=== PATIENT | female | born 1955 | race Caucasian/White ===

== ENCOUNTER 2018-02-22 08:10 | Day surgery (SDC) | payer BC, OTHER ==
[~2018-02-22 08:10] MED LIST: Buffered Lidocaine 0.9% SYRIN* 5 ML/SYR SYRINGE INTRADERM ONE
[2018-02-22] MEDS ORDERED: ceFAZolin 2 GM in NS PREMIX(*) 2 GM/100 ML BAG IVPB ONE (08:25)
[2018-02-22] MEDS ORDERED: Lidocaine 2% PF * 5 ML VIAL ONE (09:01)
[2018-02-22] MEDS ORDERED: Propofol* 10 MG/ML 20 ML BTL IV PUSH ONE ×3 (09:01→10:34)
[2018-02-22] MEDS ORDERED: ROPIVACAINE 5 MG/ML 30 ML BTL (0.5%) ONE (09:36)
[2018-02-22] MEDS ORDERED: Midazolam* 1 MG/ML 2 ML VIAL (2 MG) ONE (09:47)
[2018-02-22] MEDS ORDERED: Ketorolac INJ* 30 MG/ML 1 ML VIAL IV PRN (10:23)
[2018-02-22] MEDS ORDERED: Acetaminophen TAB* 325 MG PO PRN (10:23)
[2018-02-22] MEDS ORDERED: Naloxone* 0.4 MG/ML 1 ML VIAL IV PRN (10:23)
[2018-02-22] MEDS ORDERED: Ondansetron INJ* 2 MG/ML VIAL IV PRN (10:23)
[2018-02-22] MEDS ORDERED: Propofol* 500 MG/50 ML BTL ONE (10:38)
[2018-02-22 11:22] VITALS: BP 110/74
--- NOTE | 2018-02-23 02:03 | OP ---
DATE OF OPERATION: 02/22/18 - [facility] DATE OF : 57 SURGEON: Chava Russell MD POWER SUPPLY ENGINEER: ARSENIO Romero ANESTHESIOLOGIST: Dr. Flynn. ANESTHESIA: Local MAC. PRE-OP DIAGNOSIS: Left thumb extensor tendon laceration over the middle phalanx. POST-OP DIAGNOSIS: Left thumb extensor tendon laceration over the middle phalanx. OPERATIVE PROCEDURE: Repair of left extensor tendon. INDICATIONS: Kailey lacerated the thumb a couple of weeks ago. I talked to her about her options, she had acquired lag at the IP joint and wanted to see if we can improve that somewhat. She understands the risk that even with surgery, she may still develop an extensor lag at the IP joint and she wants to proceed. She also understands the risk of stiffness and loss of flexion. ESTIMATED BLOOD LOSS: 2 mL. COMPLICATIONS: None. FINDINGS: See above and below. DESCRIPTION OF PROCEDURE: Kailye was seen in the preoperative holding area. The correct site, side, and procedure were identified. We came back to the operating room where the arm was prepped and draped in the usual fashion. A time-out was performed. I had infiltrated the operative area with 0.5% ropivacaine. I then reopened her traumatic wound and extended this distally and a bit proximally so that I could expose the laceration at the extensor tendon. I then used a qagan tayagungin blade to debride back the scar tissue that had formed between the two tendon edges until I could see healthy tendon edges on either side of the laceration. I then used a 3-0 Ethibond to repair the extensor tendon; this was done with a Silfverskiold suture. Then knot on the ulnar side was then buried with one [id number] 4-0 Prolene suture. The IP joint now is set in about 20 degrees of hyperextension, very symmetric to the contralateral side. There was no gaping at the tendon repair when I gently flexed the IP joint. Everything was looking good, so we irrigated out the wound. The skin was closed with 4-0 nylon suture. The wound was dressed with 4x4, 1 inch Ysabel, and then a Clamshell AlumaFoam splint was placed over the entirety of the thumb holding the IP joint in full extension. This was secured with a 1-inch Coban. Tourniquet was deflated. The thumb pinked up immediately and she was taken to the recovery room in stable condition. Tourniquet was used at 250 mmHg throughout the case. [id number]/[facility] #: [id number] BACILIO
== END 2018-02-22 11:44 | disposition home or self-care (01) ==
LOC: OREAST 08:10
PROVIDERS: ATTEND Orthopaedic Surgery Hand Surgery
DX: S66.222A Laceration of extensor muscle, fascia and tendon of left thumb at wrist and hand level, initial encounter (principal); F32.9 Major depressive disorder, single episode, unspecified; F41.9 Anxiety disorder, unspecified; F17.210 Nicotine dependence, cigarettes, uncomplicated; W26.0XXA Contact with knife, initial encounter; W45.8XXA Other foreign body or object entering through skin, initial encounter; W27.8XXA Contact with other nonpowered hand tool, initial encounter; Y93.89 Activity, other specified; Y92.040 Kitchen in boarding-house as the place of occurrence of the external cause
CPT/HCPCS: J0690; J2250; J2704; J2795

== ENCOUNTER 2019-07-15 05:40 | Day surgery (SDC) | payer BC ==
[~2019-07-15 05:40] MED LIST changes: -Buffered Lidocaine 0.9% SYRIN* 5 ML/SYR SYRINGE INTRADERM ONE; +Buffered Lidocaine 1% SYRIN* 1 ML/SYRINGE INTRADERM ONE
[2019-07-15] MEDS ORDERED: Lactated Ringers 1000 ML Bag* 1,000 ML IV SCH (06:00)
[2019-07-15] MEDS ORDERED: Famotidine IV* 10 MG/ML 2 ML (20 mg) IV ONE (06:00)
[2019-07-15] MEDS ORDERED: Famotidine IV* 10 MG/ML 2 ML (20 mg) ONE (06:10)
[2019-07-15] MEDS ORDERED: Betamethasone INJ* 6 MG/ML 5 ML VIAL (30 MG) ONE (07:13)
[2019-07-15] MEDS ORDERED: Lidocaine 1% w EPI 1:200,000* SDV 30 ML VIAL ONE (07:14)
[2019-07-15] MEDS ORDERED: Bupivacaine 0.25% SDV PF* 10 ML VIAL INJ ONE (07:14)
[2019-07-15] MEDS ORDERED: Midazolam* 1 MG/ML 5 ML VIAL (5 MG) ONE (07:32)
[2019-07-15] MEDS ORDERED: Ketorolac INJ* 30 MG/ML 1 ML VIAL ONE (07:45)
[2019-07-15] MEDS ORDERED: Propofol* 10 MG/ML 20 ML BTL ONE (07:45)
[2019-07-15] MEDS ORDERED: Ondansetron INJ* 2 MG/ML VIAL ONE (07:45)
[2019-07-15] MEDS ORDERED: Lidocaine 2% PF * 5 ML VIAL ONE (07:45)
[2019-07-15] MEDS ORDERED: Naloxone* 0.4 MG/ML 1 ML VIAL IV PRN (08:01)
[2019-07-15] MEDS ORDERED: Bupivacaine 0.25% SDV* 30 ML ONE (08:48)
[2019-07-15 09:42] VITALS: BP 113/76
--- NOTE | 2019-07-15 15:11 | OP ---
DATE OF OPERATION: 07/15/19 - [facility] DATE OF : 57 SURGEON: Chava Russell MD HEAD OF OPERATION AND LOGISTICS: ARSENIO Bertrand ANESTHESIOLOGIST: Dr. Ahmadi. ANESTHESIA: Local MAC. PRE-OP DIAGNOSIS: Left trigger thumb. POST-OP DIAGNOSIS: Left trigger thumb. OPERATIVE PROCEDURE: Left trigger thumb release. INDICATIONS: Kailey has the condition. It is quite severe. We talked about treatment options. She decided to proceed with surgery. ESTIMATED BLOOD LOSS: 2 mL. COMPLICATIONS: None. FINDINGS: See above and below. DESCRIPTION OF PROCEDURE: Ms. Lea was seen in the preoperative holding area. The correct site, side, and procedure were identified. We came back to the operating room. I anesthetized the operative area with 0.25% plain Marcaine. The arm was then prepped and draped in the usual fashion and a time- out was performed. I made a 1 cm transverse incision over the A1 eneida in the MCP joint flexion crease. Full-thickness flaps were raised off the tendon sheath. Retractors were placed. The A1 eneida was incised longitudinally. It was very thickened. Once I had completed the release distally and proximally, we irrigated out the wound. Skin was closed with 4-0 nylon suture. Soft dressings were applied and she was taken to the recovery room in stable condition. [id number]/[facility] #: [id number] [facility]
== END 2019-07-15 09:40 | disposition home or self-care (01) ==
LOC: OR 05:40
PROVIDERS: ATTEND Orthopaedic Surgery Hand Surgery
DX: M65.312 Trigger thumb, left thumb (principal); F41.8 Other specified anxiety disorders; F17.210 Nicotine dependence, cigarettes, uncomplicated; Z88.1 Allergy status to other antibiotic agents; E78.1 Pure hyperglyceridemia
CPT/HCPCS: J0702; J1885; J2001; J2250; J2405; J2704; J3490

== ENCOUNTER 2022-08-12 06:44 | Observation (INO) ==
[~2022-08-12 06:44] MED LIST changes: +Buffered Lidocaine 1% SYRIN 1 ml INTRADERM ONE; -Buffered Lidocaine 1% SYRIN* 1 ML/SYRINGE INTRADERM ONE; +HYDROcodone/ACETAMIN 5/325 mg TAB PO PRN; +Lactated Ringers 1000 ml BAG 1,000 ML IV SCH; +Metoclopramide 5 MG/ML VIAL (10 mg) IV PRN; +Naloxone 0.4 mg VIAL 0.4 mg/ml 1 ml VIAL IV PRN; +Ondansetron 4 mg VIAL 2 MG/ML 2 ml VIAL IV PRN
[2022-08-12] MEDS ORDERED: ceFAZolin 2 GM in NS PREMIX 2 GM/100 ML BAG IVPB ONE (07:17)
[2022-08-12] MEDS ORDERED: fentaNYL 100 mcg/2 ml 50 MCG/ML VIAL ONE ×4 (07:44→12:23)
[2022-08-12] MEDS ORDERED: Dexamethasone IV 4 MG/ML VIAL 1 ml VIAL ONE ×2 (07:45→08:01)
[2022-08-12] MEDS ORDERED: ROPIVACAINE 5 MG/ML 30 ML BTL (0.5%) ONE ×2 (07:45→08:05)
[2022-08-12] MEDS ORDERED: Midazolam 2 mg/2 ml VIAL 1 mg/ml 2 ml VIAL (2 mg) ONE ×2 (07:45→07:58)
[2022-08-12] MEDS ORDERED: Propofol 0 MG/0 ML BTL ONE (07:46)
[2022-08-12] MEDS ORDERED: Lidocaine 2% PF 5 ML VIAL ONE (07:46)
[2022-08-12] MEDS ORDERED: Phenylephrine IV 10 MG/ML 1 ml VIAL ONE (07:46)
[2022-08-12] MEDS ORDERED: fentaNYL 250 mcg/5 ml 50 MCG/ML 5 ml VIAL (250 MCG) ONE (07:58)
[2022-08-12] MEDS ORDERED: Propofol 10 MG/ML 20 ML BTL ONE (07:58)
[2022-08-12] MEDS ORDERED: Ondansetron 4 mg VIAL 2 MG/ML 2 ml VIAL ONE (08:01)
[2022-08-12] MEDS ORDERED: HYDROmorphone 0.5 MG/0.5 ML SYRINGE ONE (09:22)
[2022-08-12] MEDS ORDERED: Lactulose 30 ml UDC PO PRN (11:05)
[2022-08-12] MEDS ORDERED: Morphine 2 MG/ML SYRINGE IV PRN (11:05)
[2022-08-12] MEDS ORDERED: Ondansetron ODT 4 mg TAB 4 MG TAB PO PRN (11:05)
[2022-08-12] MEDS ORDERED: Ondansetron 4 mg VIAL 2 MG/ML 2 ml VIAL IV PRN (11:05)
[2022-08-12] MEDS ORDERED: Magnesium Hydroxide LIQ 30 ML UDC PO PRN (11:05)
[2022-08-12] MEDS: fentaNYL 100 mcg/2 ml 50 MCG/ML VIAL IV PRN ×9 (11:14→13:20)
[2022-08-12] MEDS ORDERED: HYDROcodone/ACETAMIN 5/325 mg TAB ONE ×2 (11:21→12:23)
[2022-08-12] MEDS: Lactated Ringers 1000 ml BAG 1,000 ML IV SCH (14:12)
[2022-08-12] MEDS: Nicotine GUM 2MG FRUIT FLAVOR PO PRN ×2 (16:06→19:39)
[2022-08-12] MEDS: ceFAZolin 1 GM ADVAN 1 GM in NS 0.9% 50 ML 50 ML IVPB SCH (17:08)
[2022-08-12] MEDS: Magnesium Hydroxide LIQ 30 ML UDC PO SCH (20:39)
[2022-08-13] MEDS: Lactated Ringers 1000 ml BAG 1,000 ML IV SCH (00:34)
[2022-08-13] MEDS: ceFAZolin 1 GM ADVAN 1 GM in NS 0.9% 50 ML 50 ML IVPB SCH ×2 (00:54→08:56)
[2022-08-13 06:17] LABS: Hematocrit 35 % (35-47); Hemoglobin 11.6 g/dL (12.0-16.0); Mean Platelet Volume 6.5 fL (7.4-10.4); Platelet Count 286 10^3/uL (150-450)
[2022-08-13 06:44] LABS: Calcium 8.2 mg/dL (8.6-10.3); Creatinine, Serum 0.69 mg/dL (0.51-0.95); Potassium 3.7 mmol/L (3.5-5.0); eGFR CKD-EPI 95.7 (>60)
[2022-08-13] MEDS: Vitamin THERAPEUTIC TAB PO SCH ×2 (07:32→07:33)
[2022-08-13] MEDS: Magnesium Hydroxide LIQ 30 ML UDC PO SCH (07:35)
[2022-08-13] MEDS ORDERED: Nicotine PATCH 7 MG/24 HR PATCH TRANSDERM SCH (09:00)
[2022-08-13 11:26] VITALS: BP 126/78
== END 2022-08-13 13:30 | disposition home or self-care (01) ==
LOC: AA 06:44 → INTOOBSV 06:44 → SSU 11:08
PROVIDERS: ADMIT Orthopaedic Surgery Adult Reconstructive Orthopaedic Surgery; ATTEND Orthopaedic Surgery Adult Reconstructive Orthopaedic Surgery